=== PATIENT | male | born 1955 | race Caucasian/White ===

== ENCOUNTER 2016-02-28 12:02 | Day surgery (SDC) | payer BC ==
[~2016-02-28] VITALS: Ht 160 cm; Wt 94.3 kg
[~2016-02-28 12:02] MED LIST: ASPIRIN 32325 MG/TAB PO; ASPIRIN 81M81 MG/TA2 PO; DUO-KAPS1 CAP; FLOMAX 0.40.4 MG/CAP PO; GLUCOPHAGE1000 MG PO; LIPITOR20 MG PO; MAXZIDE-25MG TA1 TAB PO; NEURONTIN300 MG/CAP PO; NORVASC 10MG10 MG PO; PERCOCET 325 MG1 TA2 PO; PRINIVIL20 MG PO; SLO NIACIN500 MG PO
[2016-02-28 12:46] VITALS: BP 124/60; PULSE 58; TEMP 98.1
[2016-02-28] MEDS ORDERED: ASPIRIN 32325 MG/TAB PO (12:52)
[2016-02-28 15:00] VITALS: BP 111/60; PULSE 64; TEMP 98.9
[2016-02-28 15:15] VITALS: BP 101/55; PULSE 63
[2016-02-28 15:30] VITALS: BP 104/59; PULSE 69
[2016-02-28 15:45] VITALS: BP 106/53; PULSE 59
[2016-02-28 16:15] VITALS: BP 96/49; PULSE 62
== END 2016-02-28 16:53 | disposition home or self-care (01) ==
LOC: SDCO 12:02
DX: N42.0 Calculus of prostate (principal); R35.0 Frequency of micturition; N40.1 Benign prostatic hyperplasia with lower urinary tract symptoms; E11.9 Type 2 diabetes mellitus without complications; R35.1 Nocturia; Z79.84 Long term (current) use of oral hypoglycemic drugs; I10 Essential (primary) hypertension; F17.210 Nicotine dependence, cigarettes, uncomplicated
CPT/HCPCS: C1769; J0690; J2405; J2704; J2765; J3010; J7030

== ENCOUNTER 2019-02-22 06:45 | Day surgery (SDC) | payer BC ==
[~2019-02-22] VITALS: Ht 160 cm; Wt 94.8 kg
[~2019-02-22 06:45] MED LIST changes: +COZAAR100 MG PO; +DYAZIDE 25 MG-31 CAP PO; +PAXIL 20MG20 MG PO
[2019-02-22 07:26] VITALS: BP 124/71; PULSE 71; TEMP 98.3
[2019-02-22] MEDS ORDERED: NORVASC 10MG10 MG PO (08:34)
[2019-02-22] MEDS ORDERED: WELLBUTRIN XL300 M1 PO (08:35)
[2019-02-22] MEDS ORDERED: LAMICTAL 25MG T25 MG PO (08:38)
[2019-02-22] MEDS ORDERED: MAXZIDE-25MG TA1 TAB PO (08:42)
[2019-02-22 08:55] VITALS: BP 119/62; PULSE 64; TEMP 97.6
--- NOTE | 2019-02-22 08:55 | NUR ---
Pt returned via cart to GI bay 2. present in room. Pt ambulated with SBA to recliner in bay with steady gait. VSS-see flowsheet. Denied pain or nausea. Requested toast and coffee. Warm blanket given, call light in reach.
[2019-02-22 09:10] VITALS: BP 118/66; PULSE 65
[2019-02-22 09:25] VITALS: BP 115/65; PULSE 66
[2019-02-22 09:40] VITALS: BP 117/66; PULSE 63
--- NOTE | 2019-02-22 09:42 | NUR ---
Pts VS remain stable. Denies nausea or pain. Tolerated toast and coffee. IV removed and pressure dressing applied. Discharge teaching completed, pt and verbalized understanding. Dr Mirza visited with pt and post procedure. Pt dressed and taken via wheelchair to private vehicle for dc home with driving.
== END 2019-02-22 09:42 | disposition home or self-care (01) ==
LOC: SDCO 06:45
DX: Z12.11 Encounter for screening for malignant neoplasm of colon (principal); D12.2 Benign neoplasm of ascending colon; D12.3 Benign neoplasm of transverse colon; K62.1 Rectal polyp; K57.30 Diverticulosis of large intestine without perforation or abscess without bleeding; K62.89 Other specified diseases of anus and rectum; I10 Essential (primary) hypertension; E11.9 Type 2 diabetes mellitus without complications; I25.10 Atherosclerotic heart disease of native coronary artery without angina pectoris; G47.33 Obstructive sleep apnea (adult) (pediatric); F17.210 Nicotine dependence, cigarettes, uncomplicated; G89.29 Other chronic pain; N40.0 Benign prostatic hyperplasia without lower urinary tract symptoms; Z79.82 Long term (current) use of aspirin; Z79.84 Long term (current) use of oral hypoglycemic drugs
CPT/HCPCS: J2704; J7030